=== PATIENT | female | born 1980 | race Caucasian/White ===

== ENCOUNTER 2019-09-01 17:19 | Emergency (ER) | payer MEDICAID ==
[~2019-09-01] VITALS: Ht 162.6 cm; Wt 90.7 kg
[~2019-09-01 17:19] MED LIST: ALBUTEROL2.5 MG/0.1; BACTRIM DS TAB1 EACH PO; NAPROXEN 375 M375 M1 PO; NOHOMEMEDICATIONS; NORCO 5-325 TA1 EACH PO; VENTOLIN HFA 1818 GM INH
[2019-09-01] MEDS ORDERED: CELEXA 10 MG TA10 M1 PO (17:32)
[2019-09-01] MEDS ORDERED: TRILEPTAL600 MG PO (17:32)
[2019-09-01] MEDS ORDERED: AMITRIPTYLINE100 MG PO (17:33)
[2019-09-01] MEDS ORDERED: VISTARIL50 MG PO (17:33)
[2019-09-01] MEDS ORDERED: FAMOTIDINE 20 M20 MG PO (18:10)
[2019-09-01] MEDS ORDERED: PREDNISONE 20 M20 MG PO (18:10)
[2019-09-01] MEDS ORDERED: CIPROFLOXIN HC2.5 M1 OPHTHALMIC (18:23)
[2019-09-01 18:31] VITALS: BP 131/78
== END 2019-09-01 18:33 | disposition home or self-care (01) ==
LOC: M.ERS 17:19
DX: H11.32 Conjunctival hemorrhage, left eye (principal); L50.9 Urticaria, unspecified; F17.210 Nicotine dependence, cigarettes, uncomplicated; Z98.51 Tubal ligation status; Z90.49 Acquired absence of other specified parts of digestive tract; Z98.890 Other specified postprocedural states; Z91.040 Latex allergy status; Z88.0 Allergy status to penicillin; Z88.6 Allergy status to analgesic agent